=== PATIENT | female | born 1990 | race Caucasian/White ===

== ENCOUNTER 2021-11-06 23:01 | Observation (INO) | payer MEDICAID, SELFPAY ==
--- NOTE | 2021-11-06 23:04 | ED.OVERDOSE ---
HPI - Overdose General Chief Complaint: Overdose Stated Complaint: OD Time Seen by Provider: 11/06/21 23:04 Source: EMS Mode of arrival: EMS Limitations: altered mental status History of Present Illness HPI Narrative: Patient is a 31-year-old female with a history of polysubstance abuse presenting to the emergency department for evaluation of drug overdose. Patient was in PD custody when she reportedly swallowed something. This was witnessed by a mounted police. Patient states that she swallowed 10 bars of Xanax. Patient moving all extremities spontaneously, able to stand at bedside. Able to follow commands. She appears somewhat tearful and distressed. Patient presents oriented to person, not to place or time. She is acutely intoxicated. She reports that she has pain all over. Patient has altered mental status, not able to provide appropriate history. Thus, history limited. Related Data Allergies Allergy/AdvReac Type Severity Reaction Status Date / Time No Known Allergies Allergy Unverified 01/01/18 15:24 Review of Systems Review of Systems: ROS unobtainable: Yes unobtainable due to medical condition and unobtainable due to mental status PMFSH Past Medical History Medical History (Updated 11/07/21 @ 00:41 by Nata Waddell MD) Anxiety Depression Heroin abuse Hypothyroidism Social History Social History (Updated 11/06/21 @ 23:39 by Nata Waddell MD) Smoking status: Current every day smoker Alcohol intake: unknown Substance use: current Substance use type: marijuana, heroin and amphetamines Gender identity (if verbalized by the patient): Female Exam Narrative: GENERAL: Awake, alert, agitated HEAD: Normocephalic, atraumatic. EYES: PERRLA and EOMI. ENT: Nares clear, no rhinorrhea or epistaxis. Mucous membranes dry NECK: Supple. CHEST: No respiratory distress, breathing even and non labored HEART: Tachycardic rate, sinus rhythm ABDOMEN:Non distended, non tender EXTREMITIES: Normal range of motion. No edema. SKIN: Warm, scattered ecchymosis to the bilateral upper and lower extremities, no areas of abscess, induration, no overlying cellulitic changes NEURO:No focal deficits. Alert and oriented x1. Ambulatory at bedside. Course Consultations Consultation #1: Called to [place] poison control, and xanax will peak in 1-2 hours with 11 hour half life with range of 6-27 hours. Advised supportive care and not to reverse benzodiazepines Date: 11/07/21 Time: 00:22 Vital Signs Vital signs: Vital Signs Pulse Rate 106 H 11/06/21 23:08 Respiratory Rate 14 11/06/21 23:08 Blood Pressure 117/70 11/06/21 23:08 Pulse Oximetry 97 11/06/21 23:08 Pulse Rate 71 11/07/21 00:00 Respiratory Rate 14 11/07/21 00:00 Blood Pressure 107/69 11/07/21 00:00 Pulse Oximetry 97 11/06/21 23:08 MDM - Overdose MDM Narrative Medical decision making narrative: Pt presenting for evaluation of drug overdose; pt reportedly took xanax, methamphetamines tonight per PD. Pt without signs of intracranial injury or traumatic injury. She is ambulatory without deficit. I don't feel pt requires a CT head and think that she likely has these symptoms secondary to her drug use. EKG without acute ischemic changes. Labs reassuring. Mild anemia. No electrolyte derangement. Ethanol undetected. UDS confirms what patient states she ingested. Pt without SI or HI however she is quite tearful, and after conversation with poison control, pt will not have peak effect of medications for 12 hours, thus will admit to ICU for monitoring. After confirming with manager housekeeping, dairy farm operator does not need to be contacted as she has stable vital signs and is protecting her airway. Pt then admitted to hospitalist in stable condition. Differential Diagnosis Differential diagnosis: Likely cocaine intoxication, suicide attempt by multiple drug overdose, poisoning by opiate or related narcotic, drug overdose and acetaminophen overd
[2021-11-06 23:08] VITALS: BP 117/70; PULSE 106; RESP 14; O2SAT 97
[2021-11-06 23:10] VITALS: BP 117/70; PULSE 105; RESP 13
[2021-11-06 23:13] VITALS: RESP 14
--- NOTE | 2021-11-06 23:13 | ECG_ITS ---
Measurements Intervals [place] Rate: 92 P: 70 OK: 128 QRS: 52 QRSD: 85 T: 42 QT: 369 QTc: 459 Interpretive Statements SINUS RHYTHM BASELINE ARTIFACT- I, II, III, V2-V6 NORMAL ECG Electronically Signed On 11-07-2021 7:11:12 CDT by Andrew Talley D.O.
[2021-11-06 23:15] VITALS: BP 134/92; PULSE 87; RESP 19
[2021-11-06 23:37] VITALS: BP 114/63; PULSE 77; RESP 16
[2021-11-06 23:38] LABS: Basophils Percent Auto 0.2 % (0.2-1.2); Eosinophils Absolute Auto 0.2 K/mm3 (0-0.3); Eosinophils Percent Auto 3.5 % (0-4.4); Hematocrit 35.3 % (37.0-47.0); Immature Granulocyte Absolute 0.01 K/mm3 (0.00-0.031); Immature Granulocyte Percent A 0.2 % (0-0.5); Lymphocytes Absolute Auto 2.31 K/mm3 (0.9-3.2); Lymphocytes Percent Auto 36.9 % (18.3-44.2); Mean Corpuscular HGB Conc 31.2 g/dl (32-36); Mean Corpuscular Hemoglobin 28.7 pg (26-34); Mean Corpuscular Volume 92.2 fl (80-100); Mean Platelet Volume 9.7 fl (7.4-10.4); Monocytes Absolute Auto 0.4 K/mm3 (0.1-0.6); Monocytes Percent Auto 6.7 % (2.6-8.5); Neutrophils Absolute Auto 3.3 K/mm3 (1.3-6.7); Neutrophils Percent Auto 52.5 % (45.5-73.1); Platelet Count Result 243 k/mm3 (150-375); Red Blood Count 3.83 M/mm3 (4.2-5.4); Red Cell Distribution Width 13.2 % (11.5-14.5); White Blood Count 6.3 K/mm3 (4.5-10.0)
[2021-11-06 23:45] VITALS: BP 102/77; PULSE 79; PULSE 90; RESP 14; RESP 16; O2SAT 97
[2021-11-06 23:48] LABS: Acetaminophen < 10 ug/mL (10-30); Ethanol < 10 mg/dL (<10); Salicylate < 1.0 mg/dL (2-20)
[2021-11-06 23:50] LABS: Appearance Urine Clear (Clear); Bilirubin Urine Negative (Negative); Blood Urine Negative (Negative); Color Urine Yellow (Yellow); Glucose Urine UA Negative (Negative); Ketones Urine Trace mg/dL (Negative); Leukocyte Esterase Ur Negative LEU/UL (Negative); Nitrate Urine Negative (Negative); Protein Urine Negative (Negative); Specific Grav Ur >= 1.030 (1.001-1.035); Urobilinogen Urine 0.2 mg/dL (<2.0); pH Urine 5.5 (5.0-9.0)
[2021-11-06 23:53] LABS: Alanine Aminotransferase 19 U/L (4-35); Albumin Level 4.3 g/dL (3.5-5.1); Alkaline Phosphatase 54 U/L (38-126); Anion Gap 7 mmol/L (8-16); Aspartate Amino Transferase 33 U/L (14-36); Bilirubin,Total 0.4 mg/dL (0.2-1.3); Blood Urea Nitrogen 14 mg/dL (7-17); Carbon Dioxide 27 mmol/L (22-30); Chloride 106 mmol/L (98-107); Estimated Glomerular Filt Rate > 60; Glucose 95 mg/dL (65-110); Potassium 4.1 mmol/L (3.4-5.0); Sodium 140 mmol/L (137-145)
[2021-11-06 23:57] LABS: Bacteria Urine Trace /hpf; Mucus Urine Few /lpf; Squamous Epithelial Cell Urine Rare /hpf (Few)
[2021-11-06 23:58] LABS: Add Urine Microscopic? YES
[2021-11-07] VITALS (10 sets, daily range): BP systolic 92–132; BP diastolic 59–78; PULSE 57–89; RESP 14–21; TEMP 36.7–37.1; O2SAT 97–100; BMI 25.2
[2021-11-07 00:05] LABS: Barbiturate Screen Urine Negative (Negative); Benzodiazepines Screen Urine Positive (Negative); Cannabinoid Screen Urine Positive (Negative); Cocaine Screen Urine Negative (Negative); Methadone Screen Urine Negative (Negative); Opiate Screen Urine Negative (Negative); Phencyclidine Screen Urine Negative (Negative)
[2021-11-07 00:31] LABS: SARS-CoV-2 RNA PCR Negative
[2021-11-07 00:32] LABS: Amphetamine Screen Urine Positive (Negative)
[2021-11-07 00:34] LABS: Pregnancy On Board Control Positive; Urine Pregnancy Test Negative
--- NOTE | 2021-11-07 01:49 | ADMGEN ---
This patient, Sydney Garnett, was admitted to Intensive Care Unit-9. Patient/family oriented to hospital policies and general routines including ID bracelet, bed and alarms, visiting hours, pain management, procedures, bathroom and other care routines, personal items, smoking policy, room service/diet, and visiting hours. Information on how to activate the Rapid Response Team has been discussed. Patient/Family are encouraged to report perceived risks to care and to ask questions if they do not understand what they are told or what they should do.
--- NOTE | 2021-11-07 03:36 | PM.IMHP ---
H&P: HPI History of Present Illness Date/Time: Greater than 30 minutes taken to review chart, evaluate, treat, and child and family counselor patient. Anticipate patient will be in hospital less than 48 hours, will admit under observation. 11/07/21 03:36 31 yo F PMHx of substance abuse, depression, hypothyroidism. Presents via PD for drug overdose. Patient was taken into custody when she swallowed something per officer. Patient states she swallowed 10 bars of xanax. Patient still drowsy, so history is limited. She does, however, deny suicidal ideations. In ED, patient's labs remarkable for Hb 11 normal MCV. UDS positive for amphetamines, benzos, and cannabinoids. ED physician discussed case with poison control, recommended observation. No flumazenil recommended. Patient admitted to ICU for close observation. Chief Complaint: Drug overdose Review of Systems Review of Systems: 10 point ROS completed, negative unless otherwise specified per HPI PMFSH Past Medical History Medical History (Updated 11/07/21 @ 03:48 by Anibal Lou DO) Anxiety Depression Heroin abuse Hypothyroidism Social History Social History (Updated 11/06/21 @ 23:39 by Nata Waddell MD) Smoking status: Current every day smoker Additional smoking assessment comments: unknown how much per day Alcohol intake: unknown Substance use: current Substance use type: marijuana, sedatives and methamphetamine Gender identity (if verbalized by the patient): Female Spiritual care concerns: No Meds Home Medications and Allergies Home Medications Medication Instructions Recorded Confirmed Type Unable to Obtain Home Medications 11/07/21 11/07/21 History Allergies Allergy/AdvReac Type Severity Reaction Status Date / Time No Known Allergies Allergy Unverified 01/01/18 15:24 Vital Signs Vital Signs - 24 hr 11/06/21 23:08 11/06/21 23:10 11/06/21 23:13 Temperature Pulse Rate 106 H 105 H Respiratory Rate 14 13 14 Blood Pressure 117/70 117/70 Pulse Oximetry 97 11/06/21 23:15 11/06/21 23:37 11/06/21 23:45 Temperature Pulse Rate 87 77 90 Respiratory Rate 19 16 14 Blood Pressure 134/92 H 114/63 102/77 Pulse Oximetry 97 11/07/21 00:00 11/07/21 00:15 11/07/21 00:45 Temperature Pulse Rate 71 66 69 Respiratory Rate 14 14 14 Blood Pressure 107/69 107/69 92/59 L Pulse Oximetry 97 97 11/07/21 01:00 11/07/21 01:06 11/07/21 01:43 Temperature 98.1 F Pulse Rate 67 80 57 L Respiratory Rate 21 H 19 14 Blood Pressure 132/74 100/70 118/76 Pulse Oximetry 98 97 100 Exam Const: General: no acute distress Other: resting comfortably Eyes: General: appearance normal, both eyes and all related structures Resp: Auscultation: clear to auscultation bilaterally Cardio: Rate: regular rate Rhythm: regular rhythm GI: GI Palp: Yes Soft to palpation Other: nontender, nondistended Skin: Other: cutting scars noted on L wrist Neuro: Other: drowsy, but arousable. A&Ox2 Extrem: Right lower extremity: normal to inspection Left lower extremity: normal to inspection Psych: Mental Status: mental status grossly normal Other: denies SI or hallucinations H&P: Results Labs Labs: Short CBC 11/06/21 Range/Units 23:29 WBC 6.3 (4.5-10.0) K/mm3 Hgb 11.0 L (12.0-15.0) g/dL Hct 35.3 L (37.0-47.0) % Plt Count 243 (150-375) k/mm3 BMP 11/06/21 23:29 Sodium 140 Potassium 4.1 Chloride 106 Carbon Dioxide 27 BUN 14 Creatinine 0.80 Glucose 95 Calcium 9.0 Liver Function 11/06/21 Range/Units 23:29 Total Bilirubin 0.4 (0.2-1.3) mg/dL AST 33 (14-36) U/L ALT 19 (4-35) U/L Alkaline Phosphatase 54 (38-126) U/L Albumin 4.3 (3.5-5.1) g/dL Urine 11/06/21 Range/Units 23:42 Urine Color Yellow (Yellow) Urine Appearance Clear (Clear) Urine pH 5.5 (5.0-9.0) Ur Specific [place] >= 1.030 (1.001-1.035) Urine Protein Negative (Negative) mg/dL Urine
--- NOTE | 2021-11-07 03:48 | PC.NURSE ---
Poison control updated on patient's status and signed off at this time. Will continue to monitor.
[2021-11-07 08:40] LABS: Iron 55 ug/dL (37-170)
[2021-11-07 08:50] LABS: Percent Iron Saturation 16 % (20-50)
[2021-11-07 09:28] LABS: Thyroid Stimulating Hormone 0.586 uIU/mL (0.465-4.680)
--- NOTE | 2021-11-07 10:05 | PC.NURSE ---
Patient left AMA. She denied any thoughts of hurting herself to this nurse, and Dr. Oscar. IV was removed and patient left unit with hospital staff.
[2021-11-07 10:56] LABS: Folic Acid 7.6 ng/mL (2.76->20)
--- NOTE | 2021-11-07 11:03 | PM.DS ---
DS: Admitting Diagnosis Discharge Date 11/07/2021 Admitting Diagnosis Probable intentional overdose DS: Discharge Diagnosis Discharge Diagnosis (1) Drug overdose: Code(s): T50.901A - Poisoning by unspecified drugs, medicaments and biological substances, accidental (unintentional), initial encounter Status: Acute Assessment and Plan: Patient denied ingestion of any substance patient is adamant about going home today patient alert oriented family member will come to the hospital and take the patient home Patient is not suicidal/homicidal or having active depression Patient left hospital against medical advice (2) Normocytic anemia: Code(s): D64.9 - Anemia, unspecified Status: Acute Assessment and Plan: Follow-up with PCP (3) Hypothyroidism: Code(s): E03.9 - Hypothyroidism, unspecified Status: Inactive Assessment and Plan: Follow-up with PCP DS: Summary Hospital Course Hospital Course: 31 yo F PMHx of substance abuse, depression, hypothyroidism. Presents via PD for drug overdose. Patient was taken into custody when she swallowed something per officer. Patient states she swallowed 10 bars of xanax. Urine tox screen was positive for amphetamine benzodiazepine and cannabinoids. Patient denies ingestion of any bars of Xanax or other substance she stated that she told the police that so she does not get arrested Patient is alert oriented x4 patient nurse and charge nurse where available during my conversation with the patient, patient is not suicidal/homicidal/having depression, patient left the hospital against medical advice counseling in details was given to the patient risk including was discussed with the patient patient still adamant about leaving the hospital, a family member is coming to apple picker the patient from the hospital. Time Spent with Patient Time attestation: Total time spent providing and/or coordinating discharge services: DS: Data Data Completed and Pending Labs on day of discharge: Labs from last 24 hours 11/06/21 11/06/21 11/06/21 23:47 23:42 23:42 WBC RBC Hgb Hct MCV MCH MCHC RDW Plt Count MPV Immature Gran % (Auto) Neut % (Auto) Lymph % (Auto) [place] % (Auto) Eos % (Auto) Baso % (Auto) Lymph # (Auto) [place] # (Auto) Eos # (Auto) Baso # (Auto) Abs Immat Gran (auto) Absolute Neuts (auto) Absolute Nucleated RBC Nucleated RBC % Sodium Potassium Chloride Carbon Dioxide Anion Gap BUN Creatinine Estim Creat Clear Calc Estimated GFR Glucose Calcium Iron TIBC % Saturation Ferritin Total Bilirubin AST ALT Alkaline Phosphatase Total Protein Albumin Vitamin B12 Folate TSH Urine Color Urine Appearance Urine pH Ur Specific [place] Urine Protein Urine Glucose (UA) Urine Ketones Ur Blood (Man) Urine Nitrate Urine Bilirubin Urine Urobilinogen Leukocyte Esterase Rfl Urine RBC Urine WBC Ur Squamous Epith Cells Urine Bacteria Urine Mucus Urine Test Negative Salicylates Urine Opiates Screen Negative Urine Methadone Screen Negative Acetaminophen Ur Barbiturates Screen Negative Ur Phencyclidine Scrn Negative Ur Amphetamine Screen Positive A U Benzodiazepines Scrn Positive A Urine Cocaine Screen Negative U Cannabinoids Screen Positive A Ethyl Alcohol SARS-CoV-2 RNA (RT-PCR) Negative 11/06/21 11/06/21 11/06/21 23:42 23:29 23:29 WBC RBC Hgb Hct MCV MCH MCHC RDW Plt Count MPV Immature Gran % (Auto) Neut % (Auto) Lymph % (Auto) [place] % (Auto) Eos % (Auto) Baso % (Auto) Lymph # (Auto) [place] # (Auto) Eos # (Auto) Baso # (Auto) Abs Immat Gran (auto) Absolute Neuts (auto) Absolute Nucleated RBC Nucleated
== END 2021-11-07 09:43 | disposition left against medical advice (07) ==
LOC: ANHED 23:56 → ANHICU 11-07 00:41
PROVIDERS: Admitting Provider Internal Medicine; Emergency Provider Emergency Medicine; Visit Provider Internal Medicine
DX: T50.901A Poisoning by unspecified drugs, medicaments and biological substances, accidental (unintentional), initial encounter (principal); E03.9 Hypothyroidism, unspecified; F41.8 Other specified anxiety disorders; D64.9 Anemia, unspecified; Z20.822 Contact with and (suspected) exposure to COVID-19
CPT/HCPCS: 36415; 51701; 80053; 80307; 81001; 81025; 82607; 82728; 82746; 83540; 83550; 84443; 85025; 93005; 99285; C9803; G0378; G0379; U0003; U0005

== ENCOUNTER 2021-12-13 21:33 | Emergency (ER) | payer MEDICAID, SELFPAY ==
[2021-12-13 22:17] VITALS: BP 143/105; PULSE 73; RESP 18; TEMP 36.7; O2SAT 99
--- NOTE | 2021-12-13 23:50 | PC.NURSE ---
Pt no longer in waiting room
== END 2021-12-14 00:18 | disposition left against medical advice (07) ==
DX: Z53.21 Procedure and treatment not carried out due to patient leaving prior to being seen by health care provider (principal)
CPT/HCPCS: 99199

== ENCOUNTER 2022-02-26 03:57 | Emergency (ER) | payer OTHER, SELFPAY ==
[2022-02-26 03:47] VITALS: BP 140/101; PULSE 98; RESP 18; TEMP 36.6; O2SAT 100
--- NOTE | 2022-02-26 04:55 | PC.NURSE ---
PT OBSERVED LEAVING PT ROOM AND WALKING INDEPENDENTLY WITH A STEADY GAIT INTO ED WR.
--- NOTE | 2022-02-26 04:58 | PC.NURSE ---
Pt approached triage desk stating she was checking herself out . Pt became agitated when this RN asked if she had an IV placed. Pt then asked for socks, to which this RN states that I will have someone get them for her. Pt began cursing at staff and left ED with steady gait.
== END 2022-02-26 05:00 | disposition left against medical advice (07) ==
DX: R19.7 Diarrhea, unspecified (principal)
CPT/HCPCS: 99199

== ENCOUNTER 2022-02-26 07:55 | Emergency (ER) | payer OTHER, SELFPAY ==
[2022-02-26 07:59] VITALS: BP 120/87; PULSE 78; RESP 20; TEMP 36.6; O2SAT 100
--- NOTE | 2022-02-26 08:11 | PC.NURSE ---
PT is non-cooperative and paranoid. Pt states she only wants checked for STD. PT declines IV.
--- NOTE | 2022-02-26 08:25 | PC.NURSE ---
Pt refused male MD. Pt requesting female provider. Next female provider will arrive at 0900.
--- NOTE | 2022-02-26 09:16 | PC.NURSE ---
This rn notified that patient was observed walking around in the parking lot. Pt no longer wants to be seen, calling for a ride home.
--- NOTE | 2022-02-26 09:17 | PC.NURSE ---
Pt left while in room before being seen by MD. Pt hostile towards staff and non cooperative.
== END 2022-02-26 09:17 | disposition left against medical advice (07) ==
PROVIDERS: Emergency Provider Nurse Practitioner Family
DX: Z11.3 Encounter for screening for infections with a predominantly sexual mode of transmission (principal)
CPT/HCPCS: 99199

== ENCOUNTER 2023-06-18 14:56 | Emergency (ER) | payer OTHER, SELFPAY ==
[2023-06-18 15:26] VITALS: BP 106/64; PULSE 100; RESP 18; TEMP 36.7; O2SAT 100
--- NOTE | 2023-06-18 15:48 | ED.FEMALEGU ---
HPI - Female Genitourinary General Chief complaint: Urogenital-Female Stated complaint: Vaginal Problems Time Seen by Provider: 06/18/23 15:48 Source: patient Mode of arrival: ambulatory Limitations: no limitations History of Present Illness HPI Narrative: 32-year-old female presents with complaint of yellow Vaginal discharge and odor. patient reports that she was seen April 27 and gunter for foreign body. Reports that she cannot afford tampon so she used a sponge while on her period. was unable to remove it so went to ER for help. Was tested for gonorrhea and chlamydia. Results were negative. Was given Flagyl for bacterial vaginosis but states antibiotics were stolen. Patient here for refills. All systems reviewed and negative except as noted above. Related Data Home Medications Medication Instructions Recorded Confirmed sertraline 06/18/23 Allergies Allergy/AdvReac Type Severity Reaction Status Date / Time cephalexin [From Keflex] AdvReac Anaphylactic Verified 06/18/23 15:26 Shock Review of Systems Review of Systems: CONSTITUTIONAL: Denies fever, chills, or sweats. EYES: Denies visual changes, redness, or discharge. ENT: Denies rhinorrhea, congestion, sore throat, or otalgia. CARDIOVASCULAR: Denies chest pain, palpitations, or edema. RESPIRATORY: Denies cough or dyspnea. GASTROINTESTINAL: Denies abdominal pain, nausea, vomiting, or diarrhea. GENITOURINARY: Denies dysuria or hematuria. Reports yellow vaginal discharge and odor. SKIN: Denies rash or itching. MUSCULOSKELETAL: Denies back pain, joint pain, or myalgia. NEUROLOGIC: Denies headache, numbness, or weakness. PSYCHIATRIC: Denies anxiety or depression. All other systems reviewed are negative, except as documented in HPI. [facility] Past Medical History Medical History (Updated 06/18/23 @ 16:15 by Darline Rodriguez NP) Anxiety Depression Heroin abuse Hypothyroidism Social History Social History (Updated 11/06/21 @ 23:39 by Nata Waddell MD) Smoking status: Current every day smoker Additional smoking assessment comments: unknown how much per day Alcohol intake: unknown Substance use: current Substance use type: marijuana, sedatives and methamphetamine Gender identity (if verbalized by the patient): Female Spiritual care concerns: No Comments At time of signature, agree with nursing past medical, surgical, social and family history. There is no relevant family history pertinent to the presenting complaint. Exam Narrative: GENERAL: This is a well-nourished, well-developed patient, in no apparent distress. HEAD: normocephalic, atraumatic. EYES: PERRL. Sclera clear/white. Vision is grossly intact. EARS: External ears normal NOSE: External nose normal NECK: Neck supple, non-tender without lymphadenopathy, masses or thyromegaly. CARDIOVASCULAR: Regular rate and rhythm without murmurs, gallops, or rubs. RESPIRATORY: Clear to auscultation. Breath sounds equal bilaterally. No wheezes, rales, or rhonchi. SKIN: warm, Dry, intact with no suspicious lesions or rash, good texture and turgor. NEURO: awake, alert, and oriented to person, place and time. There were no obvious focal neurologic abnormalities. EXTREMITIES: No joint tenderness, effusion, or edema noted. GENITOURINARY: pelvic exam deferred Course Course Level of Care: Express Care Visit Vital Signs Vital signs: Vital Signs Temperature 36.7 C 06/18/23 15:26 Pulse Rate 100 06/18/23 15:26 Respiratory Rate 18 06/18/23 15:26 Blood Pressure 106/64 06/18/23 15:26 Pulse Oximetry 100 06/18/23 15:26 Oxygen Delivery Room Air 06/18/23 15:26 Temperature 36.7 C 06/18/23 15:26 Pulse Rate 100 06/18/23 15:26 Respiratory Rate 18 06/18/23 15:26 Blood Pressure 106/64 06/18/23 15:26 Pulse Oximetry 100 06/18/23 15:26 Oxygen Delivery Room Air 06/18/23 15:26 Reviewed MDM - Female Genitourinary MDM Narr
[2023-06-18 20:57] LABS: Trichomonas Vag PCR NOT DETECTED (NOT DETECTE)
[2023-06-18 21:22] LABS: Chlamydia trachomatis NOT DETECTED (NOT DETECTE); Neisseria gonorrhoeae PCR NOT DETECTED (NOT DETECTE)
== END 2023-06-18 16:20 | disposition home or self-care (01) ==
PROVIDERS: Emergency Provider Nurse Practitioner Family
DX: N89.8 Other specified noninflammatory disorders of vagina (principal); F41.9 Anxiety disorder, unspecified; F32.A Depression, unspecified; F17.200 Nicotine dependence, unspecified, uncomplicated; F15.90 Other stimulant use, unspecified, uncomplicated; F12.90 Cannabis use, unspecified, uncomplicated
CPT/HCPCS: 87491; 87591; 87661; 99214; G0463

== ENCOUNTER 2025-05-15 00:08 | Emergency (ER) | payer OTHER, SELFPAY ==
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
[2025-05-15 00:17] VITALS: BP 128/98; PULSE 115; RESP 18; TEMP 36.8; O2SAT 99
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
[2025-05-15] MEDS: KETOROLAC 30 MG/ML VIAL (*BKC) IM (00:26)
[2025-05-15] MEDS: DOXYCYCLINE HYCLATE 100 MG TABLET PO (02:11)
[2025-05-15] MEDS: ONDANSETRON HCL ODT 4 MG TABLET PO (02:11)
[2025-05-15] MEDS: LIDOCAINE 1% LOCAL INJ 10 ML VIAL (02:11)
[2025-05-15] MEDS: cefTRIAXone 1 GM VIAL 0.5 GM IM (02:11)
[2025-05-15] MEDS: EMTRICITABINE-TENOFOVIR 100 MG-150 MG TABLET 2 TAB PO (02:27)
[2025-05-15] MEDS: RALTEGRAVIR 400 MG TABLET PO (02:27)
--- NOTE | 2025-05-15 02:33 | PC.NURSE ---
Pt taken to shower at this time by security and technical systems architect
[2025-05-15 02:36] LABS: BEDSIDEPREGUCG Negative (Negative)
[2025-05-15 02:49] LABS: Alanine Aminotransferase 17 U/L (6-35); Albumin Level 4.3 g/dL (3.5-5.1); Alkaline Phosphatase 52 U/L (38-126); Anion Gap 8 mmol/L (4-12); Aspartate Amino Transferase 24 U/L (14-36); Bilirubin,Total 0.3 mg/dL (0.2-1.3); Blood Urea Nitrogen 12 mg/dL (7-17); Calcium 9.0 mg/dL (8.4-10.2); Carbon Dioxide 27 mmol/L (22-30); Chloride 103 mmol/L (98-107); Estimated CRCL calculation 61 ml/min; Estimated Glomerular Filt Rate > 60; Glucose 110 mg/dL (65-110); Potassium 3.6 mmol/L (3.4-5.0); Sodium 138 mmol/L (137-145); Total Protein 7.7 g/dL (6.3-8.2)
[2025-05-15 03:22] VITALS: BP 130/89; PULSE 117; RESP 18; O2SAT 99
[2025-05-15 03:25] LABS: Syphilis IgG/IgM Antibody Non-Reactive (Nonreactive)
[2025-05-15 03:29] LABS: Hepatitis B Surface Antigen Negative (Negative)
[2025-05-15 03:34] LABS: Trichomonas Vag PCR NOT DETECTED (NOT DETECTE)
[2025-05-18 10:09] LABS: HIV-1 RNA Non Reactive (Non Reactive); HIV-2 RNA Non Reactive (Non Reactive)
== END 2025-05-15 03:44 | disposition home or self-care (01) ==
LOC: ANHED 03:42
PROVIDERS: Emergency Provider Student in an Organized Health Care Education/Training Program
DX: T74.21XA Adult sexual abuse, confirmed, initial encounter (principal); L02.211 Cutaneous abscess of abdominal wall; S00.11XA Contusion of right eyelid and periocular area, initial encounter; S00.211A Abrasion of right eyelid and periocular area, initial encounter; S09.90XA Unspecified injury of head, initial encounter; E03.9 Hypothyroidism, unspecified; F41.9 Anxiety disorder, unspecified; F32.A Depression, unspecified; Y07.54 Acquaintance or friend, perpetrator of maltreatment and neglect; Y04.2XXA Assault by strike against or bumped into by another person, initial encounter
CPT/HCPCS: 36415; 70450; 70486; 80053; 81025; 86593; 87340; 87491; 87535; 87591; 87661; 96372; 99284; A9270; J0696; J1885; J2003